=== PATIENT | male | born 1955 | race Caucasian/White ===

== ENCOUNTER 2021-04-18 16:53 | Emergency (ER) | payer OTHER ==
[~2021-04-18 16:53] MED LIST: BENADRYL12.5 MG/5 PO; CLARITIN10 MG PO; KEFLEX250 MG PO; ZYRTEC10 MG PO
[2021-04-18] MEDS ORDERED: VIBRAMYCIN100 MG PO (18:59)
[2021-04-18] MEDS ORDERED: CLEOCIN300 MG PO (18:59)
== END 2021-04-18 19:15 | disposition home or self-care (01) ==
LOC: FER 16:53
DX: S50.872A Other superficial bite of left forearm, initial encounter (principal); S50.871A Other superficial bite of right forearm, initial encounter; S60.872A Other superficial bite of left wrist, initial encounter; S60.871A Other superficial bite of right wrist, initial encounter; S60.572A Other superficial bite of hand of left hand, initial encounter; S60.571A Other superficial bite of hand of right hand, initial encounter; Z23 Encounter for immunization; Z88.0 Allergy status to penicillin; W55.01XA Bitten by cat, initial encounter; Y92.009 Unspecified place in unspecified non-institutional (private) residence as the place of occurrence of the external cause
CPT/HCPCS: 90471; 90715